=== PATIENT | male | born 1970 | race Hispanic/Latino ===

== ENCOUNTER → 2022-11-22 | Day surgery (SDC) | payer BC, OTHER ==
[~2022-11-22] MED LIST: FENTANYL CITRATE/PF 100MCG/2 ML INJ ONE; HYOSCYAMINE SULFATE 0.5 MG/ML INJ ONE; LACTATED RINGER'S 1,000 ML ONE; LIDOCAINE HCL 2% LOCAL INJ 5 ML SDV VIAL INJ ONE; METOCLOPRAMIDE HCL 10 MG/2ML VIAL ONE; ONDANSETRON HCL INJ 2MG/ML 2ML 2 MG/ML VIAL ONE; POVIDONE IODINE 0.05% 0.05 % ML PO ONE; PROPOFOL IV EMULSION 10 MG/ML 20 ML VIAL ONE
[2022-11-22 17:05] VITALS: BP 111/79
[2022-11-22 19:12] LABS: WBC,FECAL (FECAL LACTOFERRIN) NEGATIVE (NEGATIVE)
== END | disposition home or self-care (01) ==
LOC: OR 12:08
PROVIDERS: ATTEND Internal Medicine Gastroenterology
DX: K22.70 Barrett's esophagus without dysplasia (principal); D12.0 Benign neoplasm of cecum; K29.70 Gastritis, unspecified, without bleeding; K52.9 Noninfective gastroenteritis and colitis, unspecified; K20.90 Esophagitis, unspecified without bleeding; K22.89 Other specified disease of esophagus; K21.9 Gastro-esophageal reflux disease without esophagitis; K62.89 Other specified diseases of anus and rectum; K64.8 Other hemorrhoids; D72.820 Lymphocytosis (symptomatic); Z71.3 Dietary counseling and surveillance; Z68.38 Body mass index [BMI] 38.0-38.9, adult; Z86.16 Personal history of COVID-19
CPT/HCPCS: 36415; 43239; 45380; 45385; 83630; 83993; 87045; 87177; 87324; 87328; 87449; 93005; C9113; J1980; J2001; J2405; J2704; J2765; J3010; J7121

== ENCOUNTER 2024-06-23 05:35 | Inpatient (IN) | payer BC ==
[~2024-06-23] VITALS: Ht 160 cm; Wt 99.8 kg
[2024-06-23] VITALS (8 sets, daily range): BP systolic 116–140; BP diastolic 74–91; PULSE 65–83; RESP 2–20; TEMP 97.7–98.4; O2SAT 97–100
[2024-06-23] MEDS: ONDANSETRON HCL INJ 2MG/ML 2ML 2 MG/ML VIAL IV STA (06:08)
[2024-06-23] MEDS: KETOROLAC TROMETHAMINE 30 MG/ML VIAL IV STA (06:08)
[2024-06-23 06:13] LABS: BASOPHILS % 0.6 % (0.0-1.0); EOSINOPHILS # (AUTO) 0.2 (0.0-0.4); EOSINOPHILS % 3.3 % (0.0-6.0); HEMOGLOBIN 14.3 g/dL (14.0-18.0); LYMPHOCYTES # (AUTO) 1.2 (1.0-3.2); LYMPHOCYTES % 25.1 % (18.0-39.1); MEAN CORPUSCULAR HEMOGLOBIN 28.9 pg (28-32); MEAN CORPUSCULAR HGB CONC 32.5 g/dL (31-35); MEAN CORPUSCULAR VOLUME 88.9 fL (81-99); MONOCYTES # (AUTO) 0.3 (0.2-0.8); MONOCYTES % 6.7 % (4.4-11.3); NEUTROPHILS # (AUTO) 3.1 (2.1-6.9); NEUTROPHILS % 64.1 % (38.7-80.0); PLATELET COUNT 191 x10e3/uL (140-360); RED BLOOD COUNT 4.95 x10e6/uL (4.3-5.7); RED CELL DISTRIBUTION WIDTH 12.8 % (11.7-14.4); WHITE BLOOD COUNT 4.79 x10e3/uL (4.8-10.8)
[2024-06-23 06:32] LABS: CREATININE, SERUM 1.07 mg/dL (0.72-1.25)
[2024-06-23 09:10] LABS: BILIRUBIN,URINE NEGATIVE (NEGATIVE); CLARITY,URINE SL CLOUDY (CLEAR); COLOR,URINE YELLOW (YELLOW); GLUCOSE, URINE NEGATIVE (NEGATIVE); KETONES,URINE NEGATIVE (NEGATIVE); LEUKOCYTE ESTERASE ,URINE NEGATIVE (NEGATIVE); NITRITE,URINE NEGATIVE (NEGATIVE); PH,URINE 6 (5 - 7); PROTEIN,URINE DIPSTICK NEGATIVE (NEGATIVE); URINE UROBILINOGEN 0.2 mg/dL (0.2 - 1); WBC,URINE (MAN) 0-5 /HPF (0-5)
[2024-06-23 09:11] LABS: BACTERIA,URINE MANY /HPF; EPITHELIAL CELLS,URINE MODERATE /LPF; RBC,URINE 21-50 /HPF (0-5)
[2024-06-23] MEDS ORDERED: SODIUM CHLORIDE FLUSH 10 ML SYR INJ PRN (10:00)
[2024-06-23] MEDS: Morphine 4mg INJECTION 4 MG/ML INJ IV ONE (10:01)
[2024-06-23] MEDS ORDERED: PANTOPRAZOLE SO40 MG PO (11:33)
[2024-06-23] MEDS ORDERED: DICYCLOMINE HCL10 MG PO (11:33)
[2024-06-23] MEDS: Morphine 4mg INJECTION 4 MG/ML INJ IV PRN (21:29)
[2024-06-23] MEDS: ONDANSETRON HCL INJ 2MG/ML 2ML 2 MG/ML VIAL IV PRN (21:30)
[2024-06-24] VITALS (9 sets, daily range): BP systolic 127–142; BP diastolic 77–91; PULSE 64–73; RESP 18–20; TEMP 97.7–99.3; O2SAT 97–100
[2024-06-24 06:12] LABS: BASOPHILS % 0.3 % (0.0-1.0); EOSINOPHILS # (AUTO) 0.2 (0.0-0.4); EOSINOPHILS % 2.3 % (0.0-6.0); HEMATOCRIT 43.2 % (38.2-49.6); HEMOGLOBIN 13.5 g/dL (14.0-18.0); LYMPHOCYTES # (AUTO) 1.5 (1.0-3.2); LYMPHOCYTES % 20.9 % (18.0-39.1); MEAN CORPUSCULAR HEMOGLOBIN 28.7 pg (28-32); MEAN CORPUSCULAR HGB CONC 31.3 g/dL (31-35); MEAN CORPUSCULAR VOLUME 91.9 fL (81-99); MONOCYTES # (AUTO) 0.7 (0.2-0.8); NEUTROPHILS # (AUTO) 4.6 (2.1-6.9); NEUTROPHILS % 66.2 % (38.7-80.0); PLATELET COUNT 185 x10e3/uL (140-360); RED CELL DISTRIBUTION WIDTH 12.8 % (11.7-14.4); WHITE BLOOD COUNT 6.93 x10e3/uL (4.8-10.8)
[2024-06-24 06:40] LABS: ALBUMIN 3.6 g/dL (3.5-5.0); ALBUMIN/GLOBULIN RATIO 1.4 (0.8-2.0); ANION GAP 10.8 mmol/L (8-16); CALCIUM 8.9 mg/dL (8.4-10.2); CREATININE, SERUM 1.57 mg/dL (0.72-1.25); POTASSIUM 3.8 mmol/L (3.5-5.1); TOTAL PROTEIN 6.2 g/dL (6.5-8.1)
[2024-06-24] MEDS: HYDROMORPHONE 1MG/1ML INJ IV PRN (15:23)
[2024-06-24] MEDS: SODIUM CHLORIDE 0.9% 1000ML 1,000 ML IV SCH (17:38)
[2024-06-25] VITALS (9 sets, daily range): BP systolic 126–159; BP diastolic 78–99; PULSE 67–77; RESP 16–19; TEMP 97.9–99; O2SAT 98–100
[2024-06-25 08:27] LABS: BASOPHILS % 0.3 % (0.0-1.0); EOSINOPHILS # (AUTO) 0.1 (0.0-0.4); EOSINOPHILS % 1.7 % (0.0-6.0); HEMATOCRIT 44.2 % (38.2-49.6); HEMOGLOBIN 13.7 g/dL (14.0-18.0); LYMPHOCYTES # (AUTO) 1.1 (1.0-3.2); LYMPHOCYTES % 14.5 % (18.0-39.1); MEAN CORPUSCULAR HEMOGLOBIN 28.5 pg (28-32); MEAN CORPUSCULAR VOLUME 91.9 fL (81-99); MONOCYTES # (AUTO) 0.7 (0.2-0.8); MONOCYTES % 9.3 % (4.4-11.3); NEUTROPHILS # (AUTO) 5.3 (2.1-6.9); NEUTROPHILS % 73.9 % (38.7-80.0); PLATELET COUNT 178 x10e3/uL (140-360); RED BLOOD COUNT 4.81 x10e6/uL (4.3-5.7); RED CELL DISTRIBUTION WIDTH 12.8 % (11.7-14.4); WHITE BLOOD COUNT 7.22 x10e3/uL (4.8-10.8)
[2024-06-25 08:50] LABS: ANION GAP 12.1 mmol/L (8-16); CALCIUM 8.7 mg/dL (8.4-10.2); CREATININE, SERUM 1.39 mg/dL (0.72-1.25); POTASSIUM 4.1 mmol/L (3.5-5.1); URIC ACID 5.8 mg/dL (4.8-8.0)
[2024-06-25] MEDS: KETOROLAC TROMETHAMINE 30 MG/ML VIAL IM PRN (12:00)
[2024-06-25] MEDS ORDERED: IOPAMIDOL 610MG/1ML 300 MG/ML VIAL IV ONE (13:06)
[2024-06-25] MEDS ORDERED: ROCURONIUM BROMIDE 1 ML IV ONE (16:42)
[2024-06-25] MEDS ORDERED: FENTANYL CITRATE/PF 100MCG/2 ML INJ ONE (16:42)
[2024-06-25] MEDS ORDERED: LIDOCAINE HCL 2% LOCAL INJ 5 ML SDV VIAL INJ ONE (16:42)
[2024-06-25] MEDS ORDERED: SUCCINYLCHOLINE CHLORIDE 20 MG/ML 10ML VIAL ONE (16:42)
[2024-06-25] MEDS: PHENAZOPYRIDINE HCL 100 MG TAB PO PRN (17:45)
[2024-06-25] MEDS ORDERED: ONDANSETRON HCL INJ 2MG/ML 2ML 2 MG/ML VIAL ONE (18:00)
[2024-06-25] MEDS ORDERED: KETOROLAC TROMETHAMINE 30 MG/ML VIAL ONE (18:00)
[2024-06-25] MEDS: SOLIFENACIN SUCCINATE 5 MG TAB PO SCH (18:19)
[2024-06-25] MEDS: PHENAZOPYRIDINE HCL 100 MG TAB ONE (19:06)
[2024-06-26 03:52] VITALS: BP 123/76; PULSE 66; RESP 18; TEMP 99.4; O2SAT 99
[2024-06-26 06:09] LABS: BASOPHILS % 0.3 % (0.0-1.0); EOSINOPHILS # (AUTO) 0.2 (0.0-0.4); EOSINOPHILS % 3.8 % (0.0-6.0); HEMATOCRIT 39.2 % (38.2-49.6); HEMOGLOBIN 12.7 g/dL (14.0-18.0); LYMPHOCYTES # (AUTO) 1.5 (1.0-3.2); LYMPHOCYTES % 25.2 % (18.0-39.1); MEAN CORPUSCULAR HEMOGLOBIN 28.9 pg (28-32); MEAN CORPUSCULAR HGB CONC 32.4 g/dL (31-35); MEAN CORPUSCULAR VOLUME 89.3 fL (81-99); MONOCYTES # (AUTO) 0.6 (0.2-0.8); MONOCYTES % 10.2 % (4.4-11.3); NEUTROPHILS # (AUTO) 3.6 (2.1-6.9); NEUTROPHILS % 60.2 % (38.7-80.0); PLATELET COUNT 171 x10e3/uL (140-360); RED BLOOD COUNT 4.39 x10e6/uL (4.3-5.7); RED CELL DISTRIBUTION WIDTH 12.7 % (11.7-14.4); WHITE BLOOD COUNT 6.06 x10e3/uL (4.8-10.8)
[2024-06-26 06:32] LABS: ANION GAP 9.1 mmol/L (8-16); CALCIUM 8.6 mg/dL (8.4-10.2); CREATININE, SERUM 0.84 mg/dL (0.72-1.25); POTASSIUM 4.1 mmol/L (3.5-5.1)
[2024-06-26 07:42] LABS: PHOSPHORUS 3.2 MG/DL (2.3-4.7)
[2024-06-26 09:02] VITALS: BP 132/87; PULSE 68; RESP 18; TEMP 98.4; O2SAT 98
[2024-06-26 09:49] VITALS: BP 132/87; PULSE 68; RESP 18; TEMP 98.4; O2SAT 98
[2024-06-26 11:14] LABS: CALCIUM 8.5 mg/dL (8.7-10.2)
[2024-06-26 12:11] VITALS: BP 143/83; PULSE 63; RESP 18; TEMP 98.1; O2SAT 98
[2024-06-26] MEDS ORDERED: VESICARE5 MG PO (14:36)
[2024-06-26] MEDS ORDERED: PYRIDIUM100 MG PO (14:36)
== END 2024-06-26 16:57 | disposition home or self-care (01) | DRG 661 ==
LOC: ER 05:40 → ERHOLD 09:57 → MED/SURG3 11:02 → OBSVTOIN 18:02
PROVIDERS: ADMIT Internal Medicine; ATTEND Internal Medicine
PROC: 0T778DZ Dilation of Left Ureter with Intraluminal Device, Via Natural or Artificial Opening Endoscopic (ICD-10-PCS; 2024-06-25)
PROC: BT141ZZ Fluoroscopy of Kidneys, Ureters and Bladder using Low Osmolar Contrast (ICD-10-PCS; principal; 2024-06-25 16:49)
DX: N13.2 Hydronephrosis with renal and ureteral calculous obstruction (principal); N17.9 Acute kidney failure, unspecified; N43.3 Hydrocele, unspecified; I86.1 Scrotal varices; N50.812 Left testicular pain; K58.0 Irritable bowel syndrome with diarrhea; J02.9 Acute pharyngitis, unspecified; K21.9 Gastro-esophageal reflux disease without esophagitis; D64.9 Anemia, unspecified; E66.9 Obesity, unspecified; Z68.39 Body mass index [BMI] 39.0-39.9, adult; Z79.899 Other long term (current) drug therapy
CPT/HCPCS: 36415; 74018; 74176; 74420; 76870; 80048; 80053; 81001; 83735; 83970; 84100; 84550; 85025; 93976; 99284; C1758; C2617; J0330; J0696; J1171; J1885; J2003; J2270; J2405; J7030